=== PATIENT | male | born 1985 ===

== ENCOUNTER 2017-11-03 11:10 | Emergency (ER) | payer SELFPAY ==
[2017-11-03 11:50] VITALS: BP 113/77; PULSE 96; RESP 20; TEMP 98.7; O2SAT 97
[2017-11-03] MEDS ORDERED: Naproxen 550 mg Tab PO STA (12:44)
--- NOTE | 2017-11-03 12:47 | C.PDOC ---
History Of Present Illness 32 y/o male presents to the ER complaining of cough, fever, and body aches which have been present for 2 days. Patient denies any nausea, vomiting, abdominal pain, and diarrhea. Patient does not have any other complaints. Time Seen by Provider: 11/03/17 12:10 Chief Complaint (Nursing): Flu-like Symptoms History Per: Patient History/Exam Limitations: no limitations Onset/Duration Of Symptoms: Days Current Symptoms Are (Timing): Still Present Associated Symptoms: Fever, Cough. denies: Nausea, Vomiting, Diarrhea Severity: Moderate Past Medical History Reviewed: Historical Data, Nursing Documentation, Vital Signs Vital Signs: Last Vital Signs Temp 98.7 F 11/03/17 11:46 Pulse 96 H 11/03/17 11:46 Resp 20 11/03/17 11:46 BP 113/77 11/03/17 11:46 Pulse Ox 97 11/03/17 15:26 - Medical History PMH: No Chronic Diseases Surgical History: No Surg Hx Family History: States: No Known Family Hx - Social History Hx Alcohol Use: Yes Hx Substance Use: No - Immunization History Hx Tetanus Toxoid Vaccination: No Hx Influenza Vaccination: No Hx Pneumococcal Vaccination: No Review Of Systems Except As Marked, All Systems Reviewed And Found Negative. Constitutional: Positive for: Fever, Malaise. Negative for: Chills Respiratory: Positive for: Cough Gastrointestinal: Negative for: Nausea, Vomiting, Abdominal Pain, Diarrhea Physical Exam - Physical Exam Appears: Non-toxic, No Acute Distress Skin: Normal Color, Warm Head: Atraumatic, Normacephalic Eye(s): bilateral: Normal Inspection, PERRL Nose: Normal Oral Mucosa: Moist Neck: Supple Chest: Symmetrical Cardiovascular: Rhythm Regular Respiratory: Normal Breath Sounds, No Accessory Muscle Use, No Rales, No Rhonchi , No Wheezing Gastrointestinal/Abdominal: Normal Exam, Soft, No Tenderness Extremity: Normal ROM Neurological/Psych: Oriented x3, Normal Speech, Normal Cognition, Normal Motor, Normal Sensation ED Course And Treatment O2 Sat by Pulse Oximetry: 97 (RA) Pulse Ox Interpretation: Normal Progress Note: Patient given Anaprox and Tamiflu. Patient discharged and told to follow up with PCP. Disposition Counseled Patient/Family Regarding: Diagnosis, Need For Followup, Rx Given - Disposition Referrals: [facility] [Outside] Disposition: HOME/ ROUTINE Disposition Time: 13:00 Condition: STABLE Additional Instructions: SEGUIMIENTO CON RIVERA MDICO / CLNICA EN 1-2 MONTENEGRO USE MEDICAMENTOS SEGN LO INDICADO BEBER MUCHO LQUIDO VOLVER A ER SI LOS SNTOMAS EMPEORAN FOLLOW UP WITH YOUR DOCTOR/CLINIC IN 1-2 DAYS USE MEDICATIONS DIRECTED DRINK PLENTY OF FLUIDS RETURN TO ER IF SYMPTOMS WORSEN Prescriptions: Benzonatate [Tessalon Perles] 100 mg PO BID PRN #15 sgl PRN Reason: Cough Naproxen 375 mg PO BID PRN #20 tablet PRN Reason: pain Oseltamivir Phosphate [Tamiflu] 75 mg PO BID #10 capsule Instructions: Viral Syndrome (ED) Forms: [employer] (Georgian) Print Language: MAORI - Clinical Impression Clinical Impression: Influenza-like illness - Scribe Statement The provider has reviewed the documentation as recorded by the Scribe Clemente Gaines Provider Attestation: All medical record entries made by the Scribe were at my direction and personally dictated by me. I have reviewed the chart and agree that the record accurately reflects my personal performance of the history, physical exam, medical decision making, and the department course for this patient. I have also personally directed, reviewed, and agree with the discharge instructions and disposition.
[2017-11-03] MEDS ORDERED: Naproxen 550 mg Tab PO ONE (12:55)
== END 2017-11-03 13:11 | disposition home or self-care (01) ==
LOC: C.ER 11:10
DX: J11.1 Influenza due to unidentified influenza virus with other respiratory manifestations (principal)

== ENCOUNTER 2018-02-25 07:18 | Emergency (ER) | payer MEDICAID, OTHER ==
[2018-02-25 08:21] LABS: URINE BILIRUBIN NEGATIVE (NEGATIVE); URINE BLOOD NEGATIVE (NEGATIVE); URINE CLARITY Clear (Clear); URINE COLOR Yellow (YELLOW); URINE GLUCOSE (UA) NORMAL (Normal); URINE LEUKOCYTE ESTERASE NEG Leu/uL (Negative); URINE PROTEIN NEGATIVE (NEGATIVE); URINE UROBILINOGEN NORMAL mg/dL (0.2-1.0)
--- NOTE | 2018-02-25 08:25 | RAD ---
PROCEDURE: Radiographs of the Lumbar Spine. HISTORY: low back pain COMPARISON: No prior. FINDINGS: BONES: Normal alignment. No listhesis. No fracture. DISC SPACES: Unremarkable. OTHER FINDINGS: None. IMPRESSION: Unremarkable radiographs of the lumbar spine.
--- NOTE | 2018-02-25 08:30 | C.PDOC ---
History Of Present Illness Patient is a 32 y/o male who presents to the ED with a complaint of lower back pain for the last 4 days. Patient denies any injuries, noting he exercises regularly but has not done anything outside of normal routine. Denies any urinary symptoms or radiating pain. No other physical complaints at this time. Chief Complaint (Nursing): Back Pain History Per: Patient History/Exam Limitations: no limitations Onset/Duration Of Symptoms: Days (4) Current Symptoms Are (Timing): Still Present Associated Symptoms: denies: Incontinence Recent travel outside of the [place]: No Past Medical History Reviewed: Historical Data, Nursing Documentation, Vital Signs Vital Signs: Last Vital Signs Temp 98 F 02/25/18 09:26 Pulse 78 02/25/18 09:26 Resp 18 02/25/18 09:26 BP 136/72 02/25/18 09:26 Pulse Ox 98 02/25/18 09:26 - Medical History PMH: No Chronic Diseases Surgical History: No Surg Hx Family History: States: No Known Family Hx - Social History Hx Tobacco Use: No Hx Alcohol Use: Yes Hx Substance Use: No - Immunization History Hx Tetanus Toxoid Vaccination: No Hx Influenza Vaccination: No Hx Pneumococcal Vaccination: No Review Of Systems Genitourinary: Negative for: Dysuria, Frequency, Incontinence, Hematuria Musculoskeletal: Positive for: Back Pain (lower) Physical Exam - Physical Exam Appears: Well, Non-toxic, No Acute Distress Skin: Normal Color, Warm, Dry Head: Atraumatic, Normacephalic Oral Mucosa: Moist Cardiovascular: Rhythm Regular, No Murmur Respiratory: Normal Breath Sounds, No Rales, No Rhonchi, No Wheezing Gastrointestinal/Abdominal: Soft, No Tenderness Back: Paraspinal Tenderness (mild), Other (mild midline lumbar tenderness) ED Course And Treatment O2 Sat by Pulse Oximetry: 97 - Other Rad LS spine X-Ray: Viewed By Me, Read By Radiologist Interpretation: Accession No. : [id number]. Patient Name / ID : ALISON HEWITT / [id number]. Exam Date : 02/25/2018 07:45:12 ( Approved ). Study Comment : Sex / Age : M / 32Y. Creator : Neal Lopez MD. Dictator : Neal Lopez MD. Language Teacher : Orange Peel Operator : Neal Lopez MD. Approver2 : Report Date : 02/25/2018 08:23:58. My Comment : . PROCEDURE: Radiographs of the Lumbar Spine. HISTORY: low back pain. COMPARISON: No prior. FINDINGS: BONES: Normal alignment. No listhesis. No fracture. DISC SPACES: Unremarkable. OTHER FINDINGS: None. IMPRESSION: Unremarkable radiographs of the lumbar spine. Progress Note: LS spine XR ordered. Patient was treated with Toradol and Lidoderm with improvement. patient is stable to be d/c home with PMD/clinic follow up. Disposition - Disposition Referrals: Dawson Jimenez MD [Staff Provider] - Disposition: HOME/ ROUTINE Disposition Time: 09:08 Condition: STABLE Additional Instructions: Follow up with your PMD within 1-2 days. Return to ED if feel worse. Prescriptions: Cyclobenzaprine [Cyclobenzaprine HCl] 10 mg PO TID #15 tab Lidocaine 5% [Lidoderm] 1 patch TP DAILY #30 patch Ibuprofen [Motrin Tab] 600 mg PO Q8 #30 tab Famotidine [Pepcid] 20 mg PO BID #20 tab Instructions: Low Back Pain (DC) Forms: [facility] (Lao), Work Excuse - Clinical Impression Clinical Impression: Low back pain - Scribe Statement The provider has reviewed the documentation as recorded by the Scribe Ghazala Driscoll All medical record entries made by the Scribe were at my direction and personally dictated by me. I have reviewed the chart and agree that the record accurately reflects my personal performance of the history, physical exam, medical decision making, and the department course for this patient. I have also personally directed, reviewed, and agree with the discharge instructions and disposition.
[2018-02-25] MEDS ORDERED: Lidocaine 5% Patch TD STA (08:54)
[2018-02-25] MEDS ORDERED: Lidocaine 5% Patch TD ONE (09:22)
[2018-02-25 09:27] VITALS: BP 136/72; PULSE 78; RESP 18; TEMP 98
[2018-02-25 17:41] VITALS: O2SAT 97
== END 2018-02-25 09:27 | disposition home or self-care (01) ==
LOC: C.ER 07:18
DX: M54.5 Low back pain (principal)
CPT/HCPCS: 72100; 81001; 96372; 99284; J1885